=== PATIENT | female | born 1970 | race Caucasian/White ===

== ENCOUNTER → 2021-10-01 | Outpatient (CLI) | payer OTHER ==
[~2021-10-01] MED LIST: ALBUTEROL SULFATE; AMLODIPINE BESYL5 MG PO; BENICAR40 MG PO; CARVEDILOL25 MG PO; CELEBREX200 MG PO; CRESTOR40 MG PO; DULERA 200 MCG8.8 GM INH; HYDROCHLOROTH12.5 M1 PO; LO-DOSE ASPIRIN81 MG PO; MONTELUKAST SOD10 MG PO; NEXIUM40 MG PO; ROBAXIN 750 MG750 MG PO; TRINTELLIX
[2021-10-01 13:59] LABS: BUN/CREATININE RATIO 34 (0-10)
== END ==
LOC: OPSV2 11:00
PROVIDERS: Orthopaedic Surgery
DX: Z01.818 Encounter for other preprocedural examination (principal); G56.02 Carpal tunnel syndrome, left upper limb
CPT/HCPCS: 36415; 80048; 93005